=== PATIENT | male | born 1980 | race Caucasian/White ===

== ENCOUNTER 2021-11-28 10:53 | Emergency (ER) | payer OTHER ==
[~2021-11-28] VITALS: Ht 177.8 cm; Wt 77.3 kg
[2021-11-28] MEDS ORDERED: OMEP10 PO (11:21)
[2021-11-28] MEDS ORDERED: METF-1211 PO (11:21)
[2021-11-28] MEDS ORDERED: INSLAN SQ (11:21)
[2021-11-28] MEDS ORDERED: METO25 PO (11:21)
[2021-11-28] MEDS ORDERED: LISI2.5T91 PO (11:21)
[2021-11-28] MEDS ORDERED: ATOR10TA84 PO (11:21)
[2021-11-28] MEDS ORDERED: ACETAMINOPHEN 500 MG TABLET PO ONE (12:00)
[2021-11-28 13:16] LABS: ANION GAP 9 mmol/L (8-16); CALCIUM, TOTAL 9.1 mg/dL (8.8-10.5); CARBON DIOXIDE 28 mmol/L (22-29); CHLORIDE 105 mmol/L (98-107); CREATININE 0.96 mg/dL (0.60-1.30); GLUCOSE,RANDOM 150 mg/dL (70-110); POTASSIUM 4.3 mmol/L (3.5-5.1); SODIUM SERUM 142 mmol/L (136-145); UREA NITROGEN, BLOOD 22 mg/dL (7-18)
[2021-11-28 13:17] LABS: GLOMERULAR FILTR. RATE CALC > 60 mL/min (>60)
[2021-11-28] MEDS ORDERED: METOPROLOL TARTRATE 25 MG TABLET PO ONE (14:15)
[2021-11-28] MEDS ORDERED: LISINOPRIL 5 MG TABLET PO ONE (14:15)
[2021-11-28 15:06] VITALS: BP 148/72
== END 2021-11-28 16:46 ==
LOC: EMS 10:53
DX: I10 Essential (primary) hypertension (principal); E11.9 Type 2 diabetes mellitus without complications; R07.9 Chest pain, unspecified; Z95.1 Presence of aortocoronary bypass graft
CPT/HCPCS: 80048; 82962; 93005; 99285